=== PATIENT | female | born 1955 | race Caucasian/White ===

== ENCOUNTER 2020-02-12 07:52 | Outpatient (CLI) | payer OTHER ==
--- NOTE | 2020-02-12 17:05 | CT Report ---
PROCEDURE: CERVICAL SPINE WO INDICATIONS: NECK PAIN TECHNIQUE: Noncontrast 3 mm thick sections acquired from the skull base to the T4 level. Sagittal and coronal r eformats were then constructed. For radiation dose reduction, the following was used: automated exp osure control, adjustment of mA and/or kV according to patient size. COMPARISON: None. FINDINGS: Image quality: Excellent. Bones: No fractures or dislocations. Visualized superior ribs are intact. Degenerative changes are seen, including mild to moderate disc space narrowing at C4-C5, with moderat e disc space narrowing at C5-C6 and C6-C7. Endplate irregularity and sclerosis are seen, which are mo st prominent at C6-C7. Posteriorly directed endplate osteophytes are seen, which are most prominent a t C6-C7. Soft tissues: Prevertebral soft tissues are normal in thickness. No paravertebral hematomas. No ap ical pneumothoraces. A 12 mm low-density right posterior thyroid nodule is incidentally noted, as on series 3 image 50. IMPRESSION: Cervical spine degenerative changes are seen, which are most prominent at C5-C6 and C6-C7. 12 mm right thyroid nodule incidentally noted. If clinically appropriate, please consider a follow-up thyroid ultrasound for further evaluation. Reviewed by: Aleks Keith MD on 02/12/2020 4:04 PM VLADISLAV Approved by: Aleks Keith MD on 02/12/2020 4:04 PM VLADISLAV Station ID: [id number]
--- NOTE | 2020-02-13 05:31 | XRAY Report ---
PROCEDURE: Shoulder 3 View RT INDICATIONS: PAIN OF RT SHOULDER TECHNIQUE: 3 views of the shoulder were acquired. COMPARISON: None. FINDINGS: Bones: No fractures or dislocations. No suspicious bony lesions. Visualized ribs appear intact. Soft tissues: No suspicious soft tissue calcifications. The visualized lung demonstrates a normal a ppearance. IMPRESSION: No significant plain film abnormality is seen. If it would be helpful for clinical management decision making, please consider a dedicated shoulder MRI for further evaluation (assuming that there is no contraindication). If there is strong clinical concern for labral pathology, then please consider performing this according to the arthrogram protoc ol. Reviewed by: Aleks Keith MD on 02/12/2020 4:02 PM VLADISLAV Approved by: Aleks Keith MD on 02/12/2020 4:02 PM VLADISLAV Station ID: [id number]
== END 2020-02-12 07:53 | disposition home or self-care (01) ==
LOC: DI 07:52
PROVIDERS: ATTEND Nurse Practitioner Family
DX: M47.812 Spondylosis without myelopathy or radiculopathy, cervical region (principal); M25.511 Pain in right shoulder; E04.1 Nontoxic single thyroid nodule
CPT/HCPCS: 72125

== ENCOUNTER 2020-02-17 16:47 | Outpatient (CLI) | payer OTHER ==
--- NOTE | 2020-02-18 17:19 | Ultrasound Report ---
PROCEDURE: Head or Neck Soft Tissue INDICATIONS: NONTOXIC SINGLE THYROID NODULE TECHNIQUE: Real-time scanning was performed of the thyroid gland, with image documentation. COMPARISON: None FINDINGS: Right: Thyroid lobe measures 1.6 x 1.7 x 5.4 cm, and is homogeneous in echotexture except for 3 thyr oid nodules. Left: Thyroid lobe measures 1.1 x 1.4 x 3.7 cm, and is homogenous in echotexture. Isthmus: 1.0 mm thick. Nodule number: One Location: Upper third right thyroid lobe Size: 1.0 x 1.1 x 1.7 cm. Composition: Mixed cystic and solid Echogenicity: The solid component is near isoechoic to the thyroid gland elsewhere Shape: wider than tall. Margins: Smooth Echogenic foci: None Total points: 2.0 ACR TI-RADS category: Category 2, not suspicious, no thyroid nodule aspiration recommended. Nodule number: Two Location: Middle third right thyroid lobe Size: 1.1 x 0.9 x 1.0 cm. Composition: Mixed cystic and solid with a solid component hypoechoic to the adjacent thyroid echote xture Echogenicity: Hypoechoic Shape: wider than tall. Margins: Smoothly marginated Echogenic foci: None Total points: 3 ACR TI-RADS category: TI-RADS category 3, no biopsy recommended. Follow-up thyroid ultrasound in one , 3 and 5 years from the current study. Nodule number: Three Location: Lower third right thyroid lobe Size: 1.1 x 0.8 x 0.8 cm. Composition: Solid Echogenicity: Hypoechoic Shape: wider than tall. Margins: Smooth Echogenic foci: None Total points: 3 ACR TI-RADS category: TI-RADS category 3, no biopsy recommended. Follow-up thyroid ultrasound is ant icipated in one, 3 and 5 years from the current study. IMPRESSION: Low likelihood of thyroid neoplasm. No biopsy recommended for the 3 nodules seen on the right. No nodules seen on the left. Follow-up thyroid ultrasound targeted to the right thyroid lobe, nodules #2 and #3, is recommended in one, 3, and 5 years. ACR TI-RADS definitions and recommendations: TI-RADS 1 (benign): 0 points. FNA not needed. TI-RADS 2 (not suspicious): 2 points. FNA not needed. TI-RADS 3 (mildly suspicious): 3 points. ? FNA if 2.5 cm or larger, follow up if 1.5 cm or larger (at 1, 3, and 5 years). TI-RADS 4 (moderately suspicious): 4-6 points. ? FNA if 1.5 cm or larger, follow up if 1 cm or larger (at 1, 2, 3, and 5 years). TI-RADS 5 (highly suspicious): 7 points or more. ? FNA if 1 cm or larger, follow up if 0.5 cm or larger (every year for 5 years). Reviewed by: Juan Manuel Liu MD on 02/18/2020 5:18 PM PDT Approved by: Juan Manuel Liu MD on 02/18/2020 5:18 PM PDT Station ID: [id number]
== END 2020-02-17 16:48 | disposition home or self-care (01) ==
LOC: DI 16:47
PROVIDERS: ATTEND Nurse Practitioner Family
DX: E04.1 Nontoxic single thyroid nodule (principal)
CPT/HCPCS: 76536

== ENCOUNTER 2020-04-01 07:25 | Outpatient (CLI) | payer OTHER ==
--- NOTE | 2020-04-03 09:34 | MRI Report ---
PROCEDURE: Shoulder RT W/O INDICATIONS: TENINOPATHY OF RIGHT ROTATOR CUFF TECHNIQUE: Noncontrast oblique coronal T2 fast spin echo with fat saturation, oblique sagittal T1 spin echo and T2 fast spin echo with fat saturation, axial T1 spin echo and T2 fast spin echo with fat saturation t hrough the shoulder. COMPARISON: Shoulder radiograph dated 02/12/2020. FINDINGS: Image quality: Excellent. Rotator cuff: Tendinosis and low-grade articular and bursal surface partial-thickness tear involving distal supraspinatus at its insertion on humeral head is seen extending to muscular tendinous junctio n. Distal infraspinatus tendinosis is noted. Distal subscapularis tendinosis is also seen. No full-th ickness rotator cuff tendon rupture. No significant rotator cuff muscle atrophy on sagittal images. Bones and bursae: No bone marrow contusions or fractures. Moderate acromioclavicular joint osteoarth ritic changes are seen with downward osteophyte formation depressing on musculotendinous junction of supraspinatus. Mild to moderate glenohumeral joint osteoarthritic changes also seen. The acromion dem onstrates conventional anatomy, without an os acromiale. No pathologic subacromial/subdeltoid bursal fluid is present. Capsule and soft tissues: In the absence of intra-articular contrast, there is suggestion of subtle superior anterior labral tear at 12 to 1:00 position. The glenohumeral ligaments appear intact. The long head of the biceps tendon demonstrates normal location and morphology. The rotator interval lorenzo ears normal, without fibrosis. The coracohumeral ligament is normal in thickness. IMPRESSION: 1. Tendinosis and low-grade articular and bursal surface partial-thickness tear involving distal supr aspinatus extending to muscular tendinous junction. Distal infraspinatus and subscapularis tendinosis . No full-thickness rotator cuff tendon rupture. 2. Moderate acromioclavicular joint osteoarthritis. Mild to moderate glenohumeral joint osteoarthriti s. 3. Finding is suspicious for focal superior anterior labral tear at 12 to 1:00 position. Reviewed by: Fco Serna MD on 04/03/2020 9:33 AM PST Approved by: Fco Serna MD on 04/03/2020 9:33 AM PST Station ID: [id number]
== END 2020-04-01 07:26 | disposition home or self-care (01) ==
LOC: DI 07:25
PROVIDERS: ATTEND Physical Medicine & Rehabilitation
DX: M19.011 Primary osteoarthritis, right shoulder (principal); M75.101 Unspecified rotator cuff tear or rupture of right shoulder, not specified as traumatic; M75.81 Other shoulder lesions, right shoulder

== ENCOUNTER 2021-06-04 15:13 | Outpatient (CLI) | payer OTHER ==
--- NOTE | 2021-06-04 17:18 | DEXA Report ---
PROCEDURE: Dexa Spine and/or Hip INDICATIONS: CURRENT SMOKER, POSTMENOPAUSAL TECHNIQUE: Dual energy x-ray absorptiometry (DXA) was performed on a [employer] System. Regions measur ed are the AP Spine, femoral neck, and if needed forearm. COMPARISON: None. FINDINGS: Lumbar Spine: Bone Mineral Density 1.302 g/cm/cm,T score 1.0, normal bone density Left Hip: Bone Mineral Density 0.805 g/cm/cm,T score -1.6, osteopenia Left Femoral Neck: Bone Mineral Density 0.717 g/cm/cm, T score -2.3, osteopenia (T score greater or equal to -1.0: NORMAL) (T score from -1.1 to -2.4: OSTEOPENIA) (T score less than or equal to -2.5 to: OSTEOPOROSIS) Impression: Osteopenia. Patient is at increased risk for fracture Patients with diagnosis of osteoporosis or osteopenia should have regular bone mineral density assess ment. For those eligible for Medicare, routine testing is allowed once every 2 years. Testing frequ ency can be increased for patients who have rapidly progressing disease or for those who are receivin g medical therapy to restore bone mass. Reviewed by: Azar Ortega MD on 06/04/2021 5:16 PM PST Approved by: Azar Ortega MD on 06/04/2021 5:16 PM PST Station ID: [id number]
== END 2021-06-04 15:14 | disposition home or self-care (01) ==
LOC: DI 15:13
PROVIDERS: ATTEND Nurse Practitioner Family
DX: Z78.0 Asymptomatic menopausal state (principal); M85.89 Other specified disorders of bone density and structure, multiple sites

== ENCOUNTER 2021-06-27 12:12 | Outpatient (CLI) | payer OTHER | END 2021-06-27 12:13 | disposition home or self-care (01) | LOC: DI 12:12 | PROVIDERS: ATTEND Physician Assistant | DX: I42.2 Other hypertrophic cardiomyopathy (principal); J44.1 Chronic obstructive pulmonary disease with (acute) exacerbation; R73.03 Prediabetes; Z82.49 Family history of ischemic heart disease and other diseases of the circulatory system; F17.200 Nicotine dependence, unspecified, uncomplicated | CPT/HCPCS: 93306 ==

== ENCOUNTER 2021-10-09 14:56 | Outpatient (CLI) | payer OTHER ==
--- NOTE | 2021-10-11 07:48 | Mammography Report ---
BILATERAL DIGITAL SCREENING MAMMOGRAM 3D/2D WITH EXAGGERATED CC: 10/09/2021 CLINICAL: Routine screening. Comparison is made to exams dated: 01/04/2015 mammogram and 07/31/2010 mammogram - [facility]. The tissue of both breasts is heterogeneously dense. This may lower the sensitivity of ma mmography. No significant masses, calcifications, or other findings are seen in either breast. There has been no significant interval change. IMPRESSION: NEGATIVE There is no mammographic evidence of malignancy. A 1 year screening mammogram is recommended. This exam was interpreted at Station ID: [id number]. NOTE: For mammograms, a report in lay terms will be sent to the patient. Approximately 15% of breast malignancies will not be visualized mammographically. In the management of a palpable breast mass, a negative mammogram must not discourage biopsy of a clinically suspicious lesion. Electronically Signed By: Oliver Webb M.D. ar/lamrad:10/10/2021 08:24:28 ACR BI-RADS Category 1: Negative 3341F PARENCHYMAL PATTERN: (D) - The breast(s) demonstrate(s) heterogeneously dense fibroglandular parenchy ma. BI-RADS CATEGORY: (1) - 1 RECOMMENDATION: (ANNUAL) - Recommend routine annual screening mammography. [id number] 1 year screening LATERALITY: (B)
== END 2021-10-09 14:57 | disposition home or self-care (01) ==
LOC: DI.S 14:56
PROVIDERS: ATTEND Nurse Practitioner Family
DX: Z12.31 Encounter for screening mammogram for malignant neoplasm of breast (principal)

== ENCOUNTER 2023-02-09 07:46 | Outpatient (CLI) | payer OTHER ==
--- NOTE | 2023-02-09 08:43 | Ultrasound Report ---
PROCEDURE: Head or Neck Soft Tissue INDICATIONS: THYROID NODULE TECHNIQUE: Real-time scanning was performed of the thyroid gland, with image documentation. COMPARISON: Thyroid ultrasound 02/17/2020 FINDINGS: Right: Thyroid lobe measures 5.8 x 1.6 x 1.8 cm, and is homogeneous in echotexture. Left: Thyroid lobe measures 3.0 x 1.1 x 1.5 cm, and is homogenous in echotexture. Isthmus: 2 mm thick. Nodule number: One Location: Right superior Size: 1.2 x 2.1 x 1.1 cm compared to 1.7 x 1.0 x 1.1 cm. Composition: Size. Echogenicity: Hypoechoic. Shape: wider than tall Margins: Smooth ). Echogenic foci: None Total points: 4 ACR TI-RADS category: 4 Nodule number: Two Location: Right mid Size: 1.2 x 1.2 x 1.1 cm compared to 1.1 x 0.9 x 1.0 cm. Composition: Solid. Echogenicity: Hypoechoic. Shape: wider than tall Margins: Smooth Echogenic foci: None Total points: 4 ACR TI-RADS category: 4 Nodule number: Three Location: Right inferior Size: 1.0 x 1.1 x 1.0 cm compared to 1.1 x 0.8 x 0.8 cm. Composition: Solid. Echogenicity: Hypoechoic. Shape: wider than tall Margins: Smooth Echogenic foci: None Total points: 4 ACR TI-RADS category: 4 IMPRESSION: All lesions are considered category 4 and stable since 2020. Recommend continued imaging follow-up as below based on initial visualization date. ACR TI-RADS definitions and recommendations: TI-RADS 1 (benign): 0 points. FNA not needed. TI-RADS 2 (not suspicious): 2 points. FNA not needed. TI-RADS 3 (mildly suspicious): 3 points. "FNA if 2.5 cm or larger, follow up if 1.5 cm or larger (at 1, 3, and 5 years). TI-RADS 4 (moderately suspicious): 4-6 points. "FNA if 1.5 cm or larger, follow up if 1 cm or larger (at 1, 2, 3, and 5 years). TI-RADS 5 (highly suspicious): 7 points or more. "FNA if 1 cm or larger, follow up if 0.5 cm or larger (every year for 5 years). Reviewed by: Elvia Baker MD on 02/09/2023 8:42 AM PDT Approved by: Elvia Baker MD on 02/09/2023 8:42 AM PDT Station ID: [id number]
== END 2023-02-09 07:47 | disposition home or self-care (01) ==
LOC: DI 07:46
PROVIDERS: ATTEND Registered Nurse
DX: E04.2 Nontoxic multinodular goiter (principal)